=== PATIENT | female | born 1965 | race African-American/Black ===

== ENCOUNTER 2024-06-13 16:18 | Emergency (ER) | payer MEDICAID, SELFPAY ==
[2024-06-13 16:19] VITALS: BP 161/100; PULSE 61; RESP 14; TEMP 36.6; O2SAT 100
[2024-06-13 16:22] VITALS: BMI 35.8
--- NOTE | 2024-06-13 16:26 | EDS_ITS ---
HPI History of Present Illness Chief Complaint: Abd Pain [facility] Medical History (Updated 06/13/24 @ 16:46 by Emily Mendiola) Dementia Allergy/AdvReac Type Severity Reaction Status Date / Time No Known Allergies Allergy Verified 06/13/24 16:20 Social History Smoking Status: Never smoker EXAM Physical Exam Const Vital Signs: 06/13/24 16:19 06/13/24 18:19 Temperature 98 F Temperature Source Temporal Pulse Rate 61 61 Respiratory Rate 14 18 Blood Pressure 161/100 H 132/87 H Blood Pressure Mean 120 102 Pulse Ox 100 97 Oxygen Delivery Method Room Air Room Air [facility] Medical decision making narrative: HISTORY OF PRESENT ILLNESS: 58 year old F presents with abdominal pain. Denies nausea and vomiting. Denies history abdominal surgery. States her hyperlipidemia. Denies any fever. Denies urinary complaints denies any vaginal pain or discharge. Denies any constipation or diarrhea. Pain is located mid abdomen. Is not worse with food. Denies any yellowing of the skin or eyes. Alcohol use. Patient denies any chest pain or shortness of breath. REVIEW OF SYSTEMS: All other systems reviewed and are negative except as noted in the history of present illness. At least 10 review of systems reviewed and are negative except as noted in history of present illness. PHYSICAL EXAM: Nursing triage notes reviewed, Vital signs reviewed Constitutional: please see [facility] HENT: MMM Eyes: Pupils equal round and reactive to light, Extraocular muscles intact Neck: No stridor, no JVD, full neck ROM Lungs: Clear to auscultation, No wheezing or rales. No increased work of breathing, no conversational dyspnea, no accessory muscle use, no nasal flaring. No respiratory distress noted Heart: Regular rate and rhythm, No murmurs, No rubs and No gallops, 2+ distal pulses (radial, femoral, posterior tibial) in all extremities Abdomen: Soft, no rigidity, rebound or guarding, no obvious peritoneal signs, no palpable pulsatile abdominal masses, no auscultated abdominal bruit : No CVAT Extremities: No edema Neuro: No focal neurological deficits, cranial nerves II through XII intact, 5/5 strength in all extremities. Intact sensation to light touch in all extremities, 2+ reflexes bilateral patella tendons. Normal gait. No ataxia. Skin: No rash or lesions noted MEDICAL DECISION MAKING: Chief Complaint: abdominal pain External records reviewed: Reviewed records in [facility]. No records in [facility]. Reviewed records in [facility] no records in clinic sync. Factors affecting care: Chronic abdominal pain, dementia, hypertension Social determinants of health:none History obtained from others: Family session if another Consults: none [facility] Narrative: Patient is initially hypertensive with a blood pressure 161/100 otherwise afebrile and nontoxic-appearing. Abdominal exam is benign I considered the following differential diagnosis: AAA, small bowel obstruction, abdominal perforation, appendicitis, pancreatitis, hepatobiliary pathology (acute cholecystitis), mesenteric ischemia, abnormalities such as pyelonephritis, nephrolithiasis I obtained a broad lab and imaging workup to further elucidate etiology patient complaint I treated patient with 1 L IV fluid, 50 mg IV Toradol and 4 mg IV Zofran. ALL IMAGES (IF OBTAINED) HAVE BEEN PERSONALLY REVIEWED AND INTERPRETED BY MYSELF. EKG shows sinus bradycardia rate of 55, normal axis, normal intervals, no STEMI, no signs of heart block CBC without leukocytosis, severe anemia, no thrombocytopenia. BMP without evidence of significant electrolyte abnormalities, no anion gap, no acute kidney injury. Urinalysis shows no evidence of urinary inflammation suggestive of UTI Lipase is wnl indicating no pancreatic inflammation. High-sensitivity troponin is negative, no evidence of myocardial ischemia CT scan abdomen pelvis shows no evidence of obvious intra-abdominal pathology, no evidence of acute surgical pathology. Incidental finding of lung nodule discussed with the patient On reevaluation patient's blood pressure improved to 132/87. She felt more comfortable per repeat abdominal exam was benign. I see nothing that would suggest an acute abdomen at this time. Based on history physical exam, risk factors, my suspicion for bowel obstruction, incarcerated hernia, perforated viscus, acute cholecystitis, appendicitis is very low. There is no evidence of peritonitis sepsis or toxicity at this time. I feel the patient can be managed as an outpatient with follow-up with her/his primary physician in the next 24 to 48 hours or soon as possible. Instructions have been given for the patient to return to the ED for worsening pain, anorexia, high fevers, intractable vomiting or bleeding. The patient and/or family, caregivers express understanding. The patient and/or family, caregivers agrees with the plan. Total critical care time today provided was at least 0 minutes. This excludes separately billable procedures. Critical care time (if documented) is secondary to the patient having high probability of clinically significant/life threatening deterioration in the patient's condition which required my urgent intervention. Shared decision making: I will have a discussion with the patient and or visitors regarding risk/benefits of further testing or admission. They will be made aware of of the risk/benefits inherent in this decision they will be given the opportunity to voice understanding. Impression: 1. Abdominal pain 2. Elevated blood pressure 3. Pulmonary nodule Disposition: Discharge home Jorge Hinson This note was generated with [employer] dictation software. It may contain incorrect words, spelling, and punctuation that were not noted in review of the chart prior to signing. Lab Data Labs: Laboratory Results - last 24 hr 06/13/24 06/13/24 16:50 17:42 WBC 8.4 RBC 4.88 Hgb 12.9 Hct 40.8 MCV 83.6 MCH 26.4 L MCHC 31.6 L RDW Std Deviation 39.6 RDW Coeff of [place] 13.2 Plt Count 332 MPV 10.7 Immature Gran % (Auto) 0.200 Neut % (Auto) 40.5 L Lymph % (Auto) 50.7 H [place] % (Auto) 6.2 Eos % (Auto) 1.8 Baso % (Auto) 0.6 Absolute Neuts (auto) 3.4 Absolute Lymphs (auto) 4.26 Nucleated RBC % 0 Sodium 141 Potassium 3.5 Chloride 108 H Carbon Dioxide 25.0 Anion Gap 8 BUN 6 L Creatinine 0.83 Est GFR (MDRD) Af Amer 90 Est GFR (MDRD) Non-Af 75 BUN/Creatinine Ratio 7.2 L Glucose 105 Calcium 9.7 Troponin I High Sens 6 Lipase 23 Urine Color Yellow Urine Clarity Clear Urine pH 7.0 Ur Specific [place] 1.005 Urine Protein Negative Urine Glucose (UA) Normal Urine Ketones Negative Urine Occult Blood Negative Urine Nitrite Negative Urine Bilirubin Negative Urine Urobilinogen Normal Ur Leukocyte Esterase Negative Urine RBC 0 SEEN Urine WBC 0 SEEN Ur Squamous Epith Cells 0 SEEN Urine Bacteria 0 SEEN Urine Mucus 0 SEEN Radiography Diagnostic Testing: Clinical Impression(s) from Imaging Studies Abdomen/Pelvis CT 06/13/24 16:43 IMPRESSION: 1. 4 mm noncalcified nodule in the lower right lung. Unless the patient is high risk, no further evaluation is indicated. 2. No acute abnormality within the abdomen or pelvis. Electronically Signed: Larry Matt MD at 19:10 EDT , Discharge Plan Triage Chief Complaint: Abd Pain ED Provider: Jorge Hinson Dx/Rx/DC Orders Instructions: ED Abdominal Pain Unkn Cause Fem Primary Care Provider: [facility] Doctor,Out of Referrals: Randall Vanessa MD [Med Staff - Active Staff] - Activity Restrictions/Additional Instructions: Thank you for trusting us with your care today! Your lab and imaging evaluation for acute pathology in the abdomen that require surgery or hospitalization was negative. We did not find evidence of acute surgical pathology. Your labs also reassuring for signs of damage to your heart, significant electrolyte disturbances, issues with the pancreas liver or gallbladder. Please take Tylenol (2 pills, 650 mg), ibuprofen (2 pills, 400 mg) every 6 hours as needed for pain and fever control. Please return to the emergency department if your symptoms change or worsen. Please follow with your primary care physician for further outpatient evaluation and management. Print Language: Guamanian Disposition Disposition: Home, Self Care
--- NOTE | 2024-06-13 16:43 | EKG12_ITS ---
Test Reason : ABD PAIN Blood Pressure : / mmHG Vent. Rate : 055 BPM Atrial Rate : 055 BPM P-R Int : 142 ms QRS Dur : 090 ms QT Int : 468 ms P-R-T Axes : 046 008 006 degrees QTc Int : 447 ms Sinus bradycardia Otherwise normal ECG Confirmed by Johnny White ([id number]), index editor MELISA GRAHAM ([id number]) on 06/16/2024 2:10:15 PM Referred By: PRADIP Confirmed By:Johnny White
--- NOTE | 2024-06-13 16:43 | CT_ITS ---
EXAM: CT ABDOMEN AND PELVIS WITH INTRAVENOUS CONTRAST CLINICAL INDICATION: mid abdominal pain TECHNIQUE: Helically acquired images were obtained of the abdomen and pelvis with intravenous contrast. This CT exam was performed using one or more of the following dose reduction techniques: automated exposure control, adjustment of the mA and/or kV according to patient size, and/or use of iterative reconstruction technique. CONTRAST: IV 100mL Isovue-300 RADIATION DOSE: CTDIvol = 16.90 mGy, DLP = 1171.92 mGy-cm COMPARISON: No relevant prior studies available. FINDINGS: LOWER THORAX: 4 mm nodule in the posterior right lung base. Visualized lungs otherwise clear. No cardiomegaly. No significant pericardial effusion. ABDOMEN: LIVER: Unremarkable. Homogeneous. No focal mass. GALLBLADDER AND BILE DUCTS: Distended gallbladder. No stones are seen. No intra- or extrahepatic biliary ductal dilation. PANCREAS: Unremarkable. No focal cystic or solid mass. SPLEEN: Unremarkable. Normal size without focal cystic or solid mass. ADRENALS: Unremarkable. No nodules. KIDNEYS AND URETERS: Unremarkable. Normal renal size and position. No hydronephrosis. STOMACH AND BOWEL: Evaluation of the GI tract is limited by absence of oral contrast. Cannot exclude stomach wall thickening. No dilated loops of bowel or evidence for obstruction. Cannot exclude segmental thickening of the curran of the small or large bowel. Cannot exclude enteritis or colitis. Moderate diffuse fecal retention. Appendix within normal limits. PELVIS: APPENDIX: No evidence of acute appendicitis. BLADDER: Unremarkable. REPRODUCTIVE: Atrophic uterus. ABDOMEN and PELVIS: INTRAPERITONEAL SPACE: Unremarkable. No ascites or other fluid collection. No free air. BONES/JOINTS: Unremarkable. No suspicious lytic or blastic abnormality. SOFT TISSUES: Unremarkable. No discrete abdominal or pelvic wall hernia. VASCULATURE: Unremarkable. Abdominal aorta is non-dilated. LYMPH NODES: Unremarkable. No enlarged lymph nodes. CT/Abdomen/Pelvis W IV Cont ONLY IMPRESSION: 1. 4 mm noncalcified nodule in the lower right lung. Unless the patient is high risk, no further evaluation is indicated. 2. No acute abnormality within the abdomen or pelvis. Electronically Signed: Larry Matt MD at 19:10 EDT ,
[2024-06-13] MEDS: Ketorolac 15 MG/ML Vial IV (16:56)
[2024-06-13] MEDS: Ondansetron 4 MG/2 ML Vial IV (16:56)
[2024-06-13] MEDS: 0.9% Normal Saline (1000mL) 1,000 ML 999 ML IV (16:57)
[2024-06-13 17:03] LABS: Absolute Lymphocyte Count 4.26 X10^3/uL (0.83-4.51); Absolute Neutrophil Count 3.4 X10^3/uL (2.0-7.7); Basophil# 0.05 X10^3/uL; Basophil% 0.6 % (0-1); Eosinophil# 0.15 X10^3/uL; Eosinophils% 1.8 % (0-5); Hematocrit 40.8 % (37-47); Hemoglobin 12.9 g/dL (12.0-15.0); Lymphocyte # 4.26 X10^3/ul (0.83-4.51); Lymphocyte % 50.7 % (19-41); Mean Corp Hgb Conc 31.6 g/dL (32-36); Mean Corpuscular Hgb 26.4 pg (27.0-32.0); Mean Corpuscular Volume 83.6 fL (81-99); Mean Platelet Vol. 10.7 fl (6.2-12.0); Monocyte# 0.52 X10^3/uL; Monocyte% 6.2 % (0-10); NRBC Flagged by Analyzer 0 % (0-5); Neutrophil # 3.41 X10^3/uL (2.7-7.7); Neutrophil % 40.5 % (47-70); Platelet Count 332 K/mm3 (150-450); RBC Distribution Width CV 13.2 % (11.6-14.6); RBC Distribution Width SD 39.6 fl (35.1-43.9); Red Blood Count 4.88 M/mm3 (4.2-5.4); White Blood Count 8.4 K/mm3 (4.4-11.0)
[2024-06-13 17:20] LABS: Anion Gap 8 (5-15); BUN 6 mg/dL (7-18); BUN/Creat Ratio 7.2 RATIO (10-20); Calcium,Total 9.7 mg/dL (8.5-10.1); Chloride 108 mmol/L (98-107); Creatinine, Serum 0.83 mg/dL (0.55-1.02); EST Glomerular Filtration Rate 75 mL/min (>60); Est Glom Filt Rate - Afr Amer 90 mL/min (>60); Glucose 105 mg/dL (74-106); Lipase 23 U/L (13-75); Potassium 3.5 mmol/L (3.5-5.1); Sodium Level 141 mmol/L (136-145); Troponin-I HS 6 pg/mL (3.0-54.0)
[2024-06-13 17:47] LABS: Bacteria 0 SEEN /hpf (None Seen); Mucous, Urine 0 SEEN /hpf (<or=2+); Red Blood Cells-Urine 0 SEEN /hpf (0-5); Squamous Epithelial Cells - UA 0 SEEN /hpf (5-10); White Blood Cells 0 SEEN /hpf (0-5)
[2024-06-13 17:50] LABS: Color, Urine Yellow (Yellow); Glucose, Dipstick Normal (Normal); Ketone-Dipstick Negative (Negative); Leukocyte Esterase-Dipstick Negative /ul (Negative); Nitrite-Dipstick Negative (Negative); Occult Blood-Urine Negative /ul (Negative); Protein-Dipstick Negative (Negative); Specific Gravity, Urine 1.005 (1.002-1.030); Urine Bilirubin Dipstick Negative (Negative); Urine Clarity Clear (Clear); Urine Urobilinogen Normal (Normal)
[2024-06-13 18:19] VITALS: BP 132/87; PULSE 61; RESP 18; O2SAT 97
--- NOTE | 2024-06-13 18:55 | NURSING ---
ct called d/t delay read. medical transcription radiology to call radiologist
[2024-06-13 20:00] VITALS: BP 150/103; PULSE 72; RESP 16; O2SAT 100
[2024-06-13 21:06] VITALS: BP 150/103; PULSE 83; RESP 16; TEMP 36.3; O2SAT 96
== END 2024-06-13 21:12 | disposition home or self-care (01) ==
PROVIDERS: Emergency Provider Emergency Medicine; Visit Provider Emergency Medicine
DX: R10.9 Unspecified abdominal pain (principal); F03.90 Unspecified dementia, unspecified severity, without behavioral disturbance, psychotic disturbance, mood disturbance, and anxiety; R03.0 Elevated blood-pressure reading, without diagnosis of hypertension; R91.1 Solitary pulmonary nodule
CPT/HCPCS: 74177; 80048; 81001; 83690; 84484; 85025; 93005; 96361; 96374; 96375; 96376; 99283; Q9967; J2405